=== PATIENT | female | born 1980 ===

== ENCOUNTER 2016-08-13 09:50 | Emergency (ER) | payer OTHER ==
--- NOTE | 2016-08-13 10:44 | UC ---
Bethany Guerin Matthew, [facility] on 08/13/16 at 1033 . Eye Complaint HPI - HPI Summary HPI Summary: In Room Note: A 36 y/o female presents to with a c/o right eyelid swelling and injection since 3 days ago. She states that she gets "herpes in her eye" whenever she is stressed out and is normally treated with acyclovir PO and the condition resolves. Associated symptoms include itchiness, injection, tingling, and swelling of the right eyelid. She denies burning. She states that she first got herpes when she was 19 years old and has had the same symptoms at least 6 times. The patient is . LNMP was 07/14. She is . SHx of cholecystectomy. The patient usually takes the medication for 3 days and improves after one week. Note: Vital signs stable. Hypothyroid and Nurse's Note: GETS HERPES IN HER EYE WHENEVER SHE IS STRESSED OUT. GETS TREATED WITCH ACYCLOVIR AND IT GOES AWAY. GOT IT WHEN SHE WAS 19 YEARS OLD. STARTED TO FEEL THE TINGLE AND ITCHINESS ON SUNDAY. SHE IS . SHE JUST TOOK A TEST. HER LMP WAS JULY 14, 2016. SHE IS . - History of Current Complaint Chief Complaint: UCEye Stated Complaint: EYE ISSUE Hx Obtained From: Patient Hx Last Menstrual Period: 07/14/2016 ?: Yes Onset/Duration: Gradual Onset, Lasting Days, Still Present Timing: Constant Severity Initially: Mild Severity Currently: Mild Location of Injury: Eye Lid (upper) - RT Associated Signs And Symptoms: Positive: Swelling - RT eyelid - Allergies/Home Medications Allergies/Adverse Reactions: Allergies Allergy/AdvReac Type Severity Reaction Status Date / Time No Known Allergies Allergy Verified 08/13/16 10:00 Home Medications: Home Medications Folic Acid TAB* [Folvite TAB*] 1 tab PO QPM 08/13/16 [History Confirmed 08/13/16 ] Levothyroxine TAB* [Synthroid 25 MCG TAB*] 1 tab PO DAILY 08/13/16 [History Confirmed 08/13/16] PMH/Surg Hx/FS Hx/Imm Hx Endocrine History Of: Denies: Diabetes, Thyroid Disease Cardiovascular History Of: Denies: Cardiac Disorders, Hypertension Respiratory History Of: Denies: COPD, Asthma GI/ History Of: Denies: Ulcer - Surgical History Surgical History: Yes Surgery Procedure, Year, and Place: 2011 GALL BLADDER REMOVAL - Family History Known Family History: Negative: Cardiac Disease, Diabetes - Social History Lives: With Family Alcohol Use: None Substance Use Type: None Smoking Status (MU): Never Smoked Tobacco Review of Systems Constitutional: Negative Skin: Negative Eyes: Eye Redness, Other - right eyelid swelling, right eyelid tingling/ itchiness ENT: Negative Respiratory: Negative Cardiovascular: Negative Gastrointestinal: Negative Genitourinary: Negative Motor: Negative Neurovascular: Negative Musculoskeletal: Negative Neurological: Negative Psychological: Negative All Other Systems Reviewed And Are Negative: Yes Physical Exam Triage Information Reviewed: Yes Appearance: Well-Appearing, No Pain Distress, Well-Nourished Vital Signs: Initial Vital Signs Temp 98.7 F 08/13/16 10:02 Pulse 89 08/13/16 10:02 Resp 16 08/13/16 10:02 BP 114/64 08/13/16 10:02 Pulse Ox 97 08/13/16 10:02 Vital Signs Reviewed: Yes Eyes: Positive: Other: - MILD SCLERA INJECTION WITH NO OBVIOUS ABNORMALITIES OF THE CORNEA. RIGHT EYE SWELLING IN THE UPPER LID AND A SMALL AREA THAT APPEARS THOUGH A BLISTER HAS OPENED CONSISTENT WITH A HERPETIC LESION. No lesion at the end of the nose or on the forehead. Fundi are benign. Left eye is normal ENT: Positive: Hearing grossly normal, Pharynx normal, TMs normal. Negative: Muffled/hoarse voice Neck: Positive: Supple, Nontender Respiratory: Positive: Chest non-tender, Lungs clear, Normal breath sounds Cardiovascular: Positive: RRR Musculoskeletal: Positive: Strength Intact - [place] Neurological: Positive: Alert Psychological: Positive: Age Appropriate Behavior Eye Complaint Course/Dx - Course Course Of Treatment: Based on past history the patient seems to have a herpetic skin lesion on the right upper lid. I explained to the patient that valtrex, the medication she requested, is a category B medication, presumed safe. The patient was given the option of using warm soaks and not taking the mediation, but she states that she didnt want to do that, because in the past it has worsened. The patient refused further examination of the eye. I will give her Valtrex 1g PO 3x daily for 3 days. Patient requested more pills for 5 days, as needed. DOCUMENTATION NOTE: Medications have been included in the original chart and reviewed. Normal BP reading and no follow-up instructions required - Differential Dx/Diagnosis Differential Diagnosis/HQI/PQRI: Conjunctivitis, Corneal Abrasion, Orbital Cellulitis Provider Diagnoses: herpetic skin lesion, right upper eyelid. Patient refused further examination of the eye. Discharge - Discharge Plan Condition: Stable Disposition: HOME Prescriptions: Valacyclovir HCl [Valtrex] 1,000 mg PO BID #15 tab MDD 3 Patient Education Materials: Shingles (ED) Referrals: No Primary Care Phys,NOPCP [Primary Care Provider] - Additional Instructions: WE DISCUSSED: herpes skin infection right eye lid You have had this condition 6 times before. It has been diagnosed as a herpes infection that gets reactivated in that nerve, similar to SHINGLES, but in a different place. The Valtrex can be taken in , but all medications carry some risk and you should take it for only 3 days. I understand that you want the medication because in the past the condition has become worse without medication. Take VALTREX, three times a day for 3 days. If your eye starts to hurt or you have any visual problems, follow up for a full eye examination to make sure the virus hasn't spread to your eye. Re check at any time for new pain, rash, discharge from the eye, redness or blistering. Feel free to call us at any time. Go to ED if you have other concerns and we are closed. The documentation as recorded by the Bethany kenyon Matthew accurately reflects the service I personally performed and the decisions made by me, Charan Verma MD.
== END 2016-08-13 10:49 | disposition home or self-care (01) ==
LOC: EDBD → UCEAST 09:50
DX: B00.9 Herpesviral infection, unspecified (principal)
CPT/HCPCS: 99202; G0463